=== PATIENT | male | born 1975 | race Caucasian/White ===

== ENCOUNTER 2021-01-19 09:59 | Outpatient (REF) | payer BC, SELFPAY ==
[2021-01-19 10:48] LABS: MANUAL DIFF FLAG NO
[2021-01-19 10:54] LABS: Basophils Percent Auto 0.7 % (0-2); Eosinophils Absolute Auto 0.1 X10*3/uL (0.0-0.4); Eosinophils Percent Auto 2.2 % (0-4); Hematocrit 44.4 % (42-52); Hemoglobin 14.4 g/dl (14.0-18.0); Imm Gran Abs Auto 0.01 X10*3/uL (0.00-0.03); Imm Gran Pct Auto 0.2 % (0.0-0.4); Lymphocytes Absolute Auto 2.1 X10*3/uL (1.2-4.9); Lymphocytes Percent Auto 35.5 % (20-40); Mean Corpuscular HGB Conc 32.4 g/dl (31.0-36.0); Mean Corpuscular Hemoglobin 28.7 pg (27.0-33.0); Mean Corpuscular Volume 88.6 fL (80-98); Mean Platelet Volume 9.3 fL (9.4-12.4); Monocytes Absolute Auto 0.6 X10*3/uL (0.1-1.2); Monocytes Percent Auto 9.9 % (2-11); Neutrophils Absolute Auto 3.1 X10*3/uL (2.0-8.3); Neutrophils Percent Auto 51.5 % (45-73); Platelet Count 273 X10*3/uL (160-400); Red Blood Count 5.01 X10*6/uL (4.60-5.80); Red Cell Distribution Width 12.2 % (11.0-16.0)
[2021-01-19 11:21] LABS: Alanine Aminotransferase 27 U/L (0-40); Albumin Level 4.6 g/dL (3.5-5.0); Alkaline Phosphatase 59 U/L (39-117); Anion Gap 14 (12-20); Aspartate Amino Transferase 19 U/L (5-37); Bilirubin Total 0.8 mg/dL (0.0-1.0); Blood Urea Nitrogen 16 mg/dL (9-16); Calcium 9.6 mg/dL (8.4-10.2); Carbon Dioxide 26 mmol/L (22-29); Chloride 105 mmol/L (96-108); Cholesterol 187 mg/dL; Estimated Glomerular Filt Rate > 60; Glucose Random 91 mg/dL (60-115); HDL Cholesterol 61 mg/dL; LDL Cholesterol Calculated 111 mg/dl; Potassium 4.7 mmol/L (3.3-5.1); Sodium 140 mmol/L (135-145); Total Protein 7.4 g/dL (6.5-8.0); Triglycerides 75 mg/dL
[2021-01-19 11:44] LABS: Thyroid Stimulating Hormone 1.34 uIU/mL (0.32-4.0)
== END 2021-01-19 10:00 | disposition home or self-care (01) ==
LOC: HO.LAB 09:59
PROVIDERS: PCP Physician Assistant; Visit Provider Physician Assistant
DX: E78.5 Hyperlipidemia, unspecified (principal); I10 Essential (primary) hypertension
CPT/HCPCS: 36415; 80053; 80061; 84443; 85025

== ENCOUNTER → 2021-06-01 15:51 | Outpatient (BNVA) | payer BC, SELFPAY | PROVIDERS: PCP Physician Assistant; Referring Provider Physician Assistant; Visit Provider Surgery ==

== ENCOUNTER 2021-07-11 08:54 | Day surgery (SDC) | payer BC, SELFPAY ==
[2021-07-11] VITALS (7 sets, daily range): BP systolic 114–133; BP diastolic 52–66; PULSE 75–89; RESP 14–18; TEMP 36.2–36.6; O2SAT 96–99; BMI 29.2
[2021-07-11] MEDS: Lactated Ringers 1,000 ML 80 ML IVCONT (09:30)
--- NOTE | 2021-07-11 09:54 | HO.ANESPROP2 ---
HPI - Anesthesia Eval Consult details Narrative: 45 M for ummblical hernia repair PMFSH Active Problems Active Problems: All Active Problems (Updated 06/01/21 @ 16:33 by Steve Valencia MD) CHRISTIE (generalized anxiety disorder) (Acute) HLD (hyperlipidemia) (Acute) Annual physical exam (Acute) Urinary frequency (Acute) Umbilical hernia (Acute) HTN (hypertension) (Acute) Past Medical History Medical History (Updated 06/01/21 @ 16:33 by Steve Valencia MD) HTN (hypertension) Functional capacity: independent ambulation Family History Family History Father Prostate cancer Mother Skin cancer Sister Breast cancer Other Mental problem Family history of problems with anesthesia: No Surgical History Surgical History (Updated 07/11/21 @ 09:14 by Mariann Guo RN) [place] teeth extracted History of Problems with Anesthesia: No Social History Social History Housing: House Alcohol intake: current Alcohol intake frequency: a few times a month Patient Tobacco Use Status: Never used Tobacco e-Cigarette/Vaping Use: Never Used Second Hand Smoke Exposure: Yes Use of substances other than those prescribed or required for medical reasons: No Have you been hit, kicked, punched, or otherwise hurt by someone within the past year? 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 [employer] Allergies Allergy/AdvReac Type Severity Reaction Status Date / Time No Known Allergies Allergy Verified 06/01/21 16:08 Active Medications: Current Medications Fentanyl (Fentanyl Citrate/Pf 100 Mcg/2 Ml Vial) 25 mcg IVPUSH Q5M PRN; Protocol PRN Reason: Pain, Moderate (Pain Scale 4-6 Promethazine HCl 12.5 mg/ (Sodium Chloride) 50.5 mls @ 202 mls/hr IV ONCE PRN PRN Reason: Nausea and Vomiting Oxycodone HCl (Oxycodone Hcl Immed Release 5 Mg Tablet) 5 mg PO ONCE PRN PRN Reason: Pain, Severe (Pain Scale 7-10) Home Medications Medication Instructions Recorded Confirmed Last Taken Type clonazepam 0.5 mg tablet 0.5 mg PO DAILY 12/30/20 11/18/21 Unknown History duloxetine 20 mg capsule,delayed 20 mg PO DAILY 01/23/21 06/01/21 Unknown History release aripiprazole 2 mg tablet 2 mg PO DAILY 06/01/21 06/01/21 07/11/21 History propranolol 10 mg tablet 10 mg PO BID 06/01/21 06/01/21 Unknown History sertraline 100 mg tablet 100 mg PO DAILY 06/01/21 06/01/21 07/11/21 History Exam Exam Date and Time: July 11, 2021 0954 Height,Weight and Vital Signs: Height 5 ft 11 in Weight 95.254 kg Last Vital Signs Temp 97.8 F 07/11/21 09:07 Pulse 75 07/11/21 09:07 Resp 18 07/11/21 09:07 BP 121/66 07/11/21 09:07 Pulse Ox 98 07/11/21 09:07 Airway Mallampati Class: II TM Dist: >3cm Neck ROM: Full Loose/Missing/Broken Teeth: Yes (Chipped teeth ) Heart: rrr Lungs: bl breath sounds Assessment and Plan Assessment Anesthesia Assessment: Anesthesia Plan Discussed Final Anesthetic Review Family History of Problems with Anesthesia: No History of Problems with Anesthesia: No NPO: Yes ASA Class: II Final Preanesthetic Review: Cyn Risks/Benef Reviewed Patient Risk: Intermediate Procedure Risk: Intermediate Anesthetic Plan Anesthetic Plan: GA Disposition: Standard PACU
--- NOTE | 2021-07-11 10:08 | P.HPSUR_ITS ---
Pre-Procedural Eval Section A Date of Service: 07/11/21 Section B Chief Complaint: Umbilical Hernia Details of Present Illness: he has a reducible mass on the umbilicus Relevant Family History (Specify if Yes): No Relevant Social History: None Present Medications: see Short Stay Collaborative assessment Medical History: Significant History ( anxiety disorder, hyperlipidemia, hy pertension) Allergies: Allergies Allergy/AdvReac Type Severity Reaction Status Date / Time No Known Allergies Allergy Verified 06/01/21 16:08 Review of Systems Sugical H&P ROS: Negative: Constitution, Cardiovascular, Respiratory, Neurological, Psychiatric, Hem-Onc, Allergic/Immunologic, Gastrointestinal, Genitourinary, Musculoskeletal, Integumentary, Endocrine and Eyes/Ears/Nose/Throat Exam Surgical H&P Exam: Normal: HEENT, Normal: Heart, Normal: Lungs, Normal: Extremities, Normal: Skin and Normal: Neurological and Significant Findings: Abdomen ( umbilical hernia, about 2.5 cm fascial defect) Plan Diagnosis/Plan: Unchanged I have reviewed the history and physical and performed a pertinent physical examination on my patient. No changes have occurred unless specified.
--- NOTE | 2021-07-11 11:05 | W.PM.OPN ---
Operative Note Operative Note Date of Service: 07/11/21 Narrative: Preop diagnosis: Umbilical hernia Postop diagnosis: Umbilical hernia Procedure: Repair of umbilical hernia with Ventralex mesh Surgeon: Steve Valencia MD assistant professor of marine biology: ASHLEY Oh The patient is a 45-year-old male with a reducible umbilical mass consistent with umbilical hernia. In view of symptoms he wanted to proceed with repair. He understood the technique of repair with mesh. He was aware of the risks, benefits, and alternatives He was brought to the operating room and placed supine on the table under general anesthesia via laryngeal mask airway. The abdomen was prepped and draped in the usual sterile fashion. A surgical time-out was done. The patient received cefazolin 2 g IV preoperatively . I infiltrated the planned line of incision with lidocaine 1%. I then made a transverse linear incision on the supra umbilical margin using a blade 15 and this was carried down through the full-thickness of the skin and subcutaneous fat. I was able to visualize a fat containing hernia. I then sharply dissected the umbilicus off of The hernia contents using Metzenbaum scissors and electrocautery. Continue to dissect around the hernia contents all the way to the fascial layer. I defined the fascial layer with dissection and divided all adhesions freeing the hernia to the fascia. I was able to therefore reduce the hernia completely through this defect. The hernia contents consisted only of fat. The fascial defect was measured to be about 1 cm in size although there was a lot of fat that was herniated. I visualized and waited for the underside of the fascial defect to make sure that we had good margins for placement of the mesh. I chose a small-sized Ventralex mesh and positioned this flat under the fascial defect. I secured the Prolene straps of the mesh to the fascial edge on both sides using Prolene 2 sutures. I then trimmed Prolene straps on the fascial level. I closed the fascia with a [id number] Maxon 1 stitch. I applied a Dexon 3-0 stitch to tack the umbilicus to the fascia to re-create the dimple. The subcutaneous layer was reapposed with Dexon 3-0 interrupted sutures. Skin closure was achieved with Dexon 4-0 subcuticular running stitch. The incision was infiltrated with Marcaine 0.5 % for postop analgesia. Steri-Strips and dressings were applied. Procedure was then completed The patient tolerated the procedure well. There were no complications noted. Initial and final counts of sponges and instruments were correct. Estimated blood loss was about less than 5 cc. The patient was extubated without difficulty and transferred to the recovery room with stable vital signs.
--- NOTE | 2021-07-11 11:11 | P.BOP_ITS ---
Brief Operative Note Date of Service: 07/11/21 Pre-op diagnosis: Umbilical hernia Post-op diagnosis: same Procedure: repair of umbilical hernia with mesh Surgeon: Steve Valencia MD Anesthesia: GLMA Was an Knitting Machine Mechanic used for this Procedure?: Yes Knitting Machine Mechanic: Marielle Oh Estimated blood loss (mL): 5 Pathology: none sent Condition: stable Disposition: PACU
[2021-07-11] MEDS: oxyCODONE HCl Immed Release 5 MG TABLET PO (12:00)
== END 2021-07-11 12:41 | disposition home or self-care (01) ==
PROVIDERS: PCP Physician Assistant; Visit Provider Surgery
PROC: (CPT 49585; principal; 2021-07-11 10:40)
DX: K42.9 Umbilical hernia without obstruction or gangrene (principal); I10 Essential (primary) hypertension; Z79.899 Other long term (current) drug therapy
CPT/HCPCS: 49585; C1781; J0690; J1100; J2250; J2405; J3010

== ENCOUNTER 2021-07-24 08:58 | Outpatient (REF) | payer BC, SELFPAY ==
[2021-07-24 09:44] LABS: Hematocrit 43.2 % (42.0-52.0); Mean Corpuscular HGB Conc 32.4 g/dl (31.0-36.0); Mean Corpuscular Volume 89.4 fL (80.0-98.0); Mean Platelet Volume 9.3 fL (9.4-12.4); Platelet Count 260 X10*3/uL (160-400); Red Blood Count 4.83 X10*6/uL (4.60-5.80); Red Cell Distribution Width 12.4 % (11.0-16.0); White Blood Count 7.5 X10*3/uL (4.8-10.8)
[2021-07-24 10:26] LABS: Alanine Aminotransferase 32 U/L (0-40); Albumin Level 4.3 g/dL (3.5-5.0); Alkaline Phosphatase 66 U/L (39-117); Anion Gap 11 (12-20); Aspartate Amino Transferase 16 U/L (5-37); Bilirubin Total 0.5 mg/dL (0.0-1.0); Blood Urea Nitrogen 15 mg/dL (9-16); Calcium 9.7 mg/dL (8.4-10.2); Carbon Dioxide 31 mmol/L (22-29); Chloride 105 mmol/L (96-108); Cholesterol 146 mg/dL; Estimated Glomerular Filt Rate > 60; Glucose Fasting 100 mg/dL (60-99); HDL Cholesterol 52 mg/dL; LDL Cholesterol Calculated 76 mg/dl; Potassium 4.8 mmol/L (3.3-5.1); Sodium 142 mmol/L (135-145); Total Protein 7.2 g/dL (6.5-8.0); Triglycerides 90 mg/dL
[2021-07-24 10:47] LABS: TSH reflex Free T4 1.56 uIU/mL (0.32-4.0)
== END 2021-07-24 08:59 | disposition home or self-care (01) ==
LOC: HO.LAB 08:58
PROVIDERS: PCP Physician Assistant; Visit Provider Physician Assistant
DX: I10 Essential (primary) hypertension (principal)
CPT/HCPCS: 36415; 80053; 80061; 84443; 85027

== ENCOUNTER → 2021-07-25 09:43 | Outpatient (BNVA) | payer BC, SELFPAY | PROVIDERS: PCP Physician Assistant; Referring Provider Physician Assistant; Visit Provider Surgery ==

== ENCOUNTER 2022-06-06 08:42 | Outpatient (REF) | payer BC, SELFPAY ==
[2022-06-06 09:39] LABS: Hematocrit 42.1 % (42.0-52.0); Hemoglobin 13.9 g/dl (14.0-18.0); Mean Corpuscular Hemoglobin 28.9 pg (27.0-33.0); Mean Corpuscular Volume 87.5 fL (80.0-98.0); Mean Platelet Volume 9.6 fL (9.4-12.4); Platelet Count 288 X10*3/uL (160-400); Red Blood Count 4.81 X10*6/uL (4.60-5.80); Red Cell Distribution Width 12.2 % (11.0-16.0); White Blood Count 6.2 X10*3/uL (4.8-10.8)
[2022-06-06 10:42] LABS: Alanine Aminotransferase 14 U/L (0-40); Albumin Level 4.4 g/dL (3.5-5.0); Alkaline Phosphatase 61 U/L (39-117); Anion Gap 12 (12-20); Aspartate Amino Transferase 11 U/L (5-37); Bilirubin Total 0.5 mg/dL (0.0-1.0); Blood Urea Nitrogen 15 mg/dL (9-16); Calcium 9.4 mg/dL (8.4-10.2); Carbon Dioxide 29 mmol/L (22-29); Chloride 104 mmol/L (96-108); Cholesterol 134 mg/dL; Estimated Glomerular Filt Rate > 60; Glucose Fasting 93 mg/dL (60-99); HDL Cholesterol 49 mg/dL; LDL Cholesterol Calculated 70 mg/dl; Potassium 4.4 mmol/L (3.3-5.1); Sodium 141 mmol/L (135-145); TSH reflex Free T4 1.58 uIU/mL (0.32-4.0); Total Protein 6.8 g/dL (6.5-8.0); Triglycerides 76 mg/dL
[2022-06-06 11:21] LABS: Creatinine Urine 212.97 mg/dL; Microalbum/Creatinine Ratio Ur 4.6 ug/mg cr
== END 2022-06-06 08:43 | disposition home or self-care (01) ==
LOC: HO.LAB 08:42
PROVIDERS: PCP Physician Assistant; Visit Provider Physician Assistant
DX: E78.2 Mixed hyperlipidemia (principal); I10 Essential (primary) hypertension
CPT/HCPCS: 36415; 80053; 80061; 82043; 84443; 85027

== ENCOUNTER 2022-06-26 14:17 | Outpatient (REF) | payer BC, SELFPAY ==
--- NOTE | ~2022-06-26 | XR_ITS ---
EXAMINATION: XR SHOULDER, LEFT CLINICAL INFORMATION: Pain of left shoulder COMPARISON: None TECHNIQUE: AP external rotation, Grashey, scapular Y, and axillary views of the left shoulder. FINDINGS: The humeral head is well positioned over the intact glenoid. Glenohumeral joint space is normal. No arthritic deformity, fracture or subluxation. Acromioclavicular joint is normal. The subacromial space is normal. Scapula is unremarkable. No calcium deposition within rotator cuff tendons. The visualized portion of the left lung is normal. XR/XR shoulder LT min 2V IMPRESSION: Normal left shoulder.
== END 2022-06-26 14:18 | disposition home or self-care (01) ==
LOC: HO.XRAY 14:17
PROVIDERS: PCP Physician Assistant; Visit Provider Physician Assistant
DX: M25.812 Other specified joint disorders, left shoulder (principal)
CPT/HCPCS: 73030

== ENCOUNTER 2023-10-03 09:38 | Outpatient (REF) | payer BC, SELFPAY ==
[2023-10-03 10:49] LABS: Hematocrit 42.6 % (42.0-52.0); Hemoglobin 14.5 g/dl (14.0-18.0); Mean Corpuscular Hemoglobin 30.2 pg (27.0-33.0); Mean Corpuscular Volume 88.8 fL (80.0-98.0); Mean Platelet Volume 9.6 fL (9.4-12.4); Platelet Count 268 X10*3/uL (160-400); Red Cell Distribution Width 12.2 % (11.0-16.0); White Blood Count 6.1 X10*3/uL (4.8-10.8)
[2023-10-03 11:17] LABS: Alanine Aminotransferase 24 U/L (0-40); Albumin Level 4.5 g/dL (3.5-5.0); Alkaline Phosphatase 63 U/L (39-117); Anion Gap 12 (12-20); Aspartate Amino Transferase 15 U/L (5-37); Bilirubin Total 0.9 mg/dL (0.0-1.0); Blood Urea Nitrogen 14 mg/dL (9-16); Calcium 9.5 mg/dL (8.4-10.2); Carbon Dioxide 30 mmol/L (22-29); Chloride 103 mmol/L (96-108); Cholesterol 162 mg/dL (<200); Estimated Glomerular Filt Rate > 60; Glucose Fasting 92 mg/dL (60-99); HDL Cholesterol 57 mg/dL (>40); LDL Cholesterol Calculated 84 mg/dL (<100); Potassium 4.4 mmol/L (3.3-5.1); Sodium 141 mmol/L (135-145); Total Protein 7.3 g/dL (6.5-8.0); Triglycerides 109 mg/dL (<150)
[2023-10-03 11:32] LABS: TSH reflex Free T4 1.38 uIU/mL (0.32-4.0)
== END 2023-10-03 09:39 | disposition home or self-care (01) ==
LOC: HO.LAB 09:38
PROVIDERS: PCP Physician Assistant; Visit Provider Physician Assistant
DX: E78.2 Mixed hyperlipidemia (principal); I10 Essential (primary) hypertension
CPT/HCPCS: 36415; 80053; 80061; 84443; 85027

== ENCOUNTER 2023-10-14 15:37 | Outpatient (AMB) | payer BC, SELFPAY ==
--- NOTE | 2023-10-14 15:47 | A.OFFPC_ITS ---
Vital Signs 10/14/23 15:47 10/14/23 15:57 Height 5 ft 11 in 5 ft 11 in Weight 200 lb 6 oz BMI 27.9 BP 124/82 Blood Pressure Location Lt brachial Lt brachial Position Sitting Sitting Pulse 67 Pulse Source Pulse Oximeter Pulse Oximeter Pulse Oximetry (%) 98 Oxygen Delivery Method Room Air Room Air Intake Visit Reasons: Physical Exam Intake Note: Patient is here today for a physical. Treatment Coordinator Required: No Accompanied by: Self / Same As Patient Allergies No Known Allergies Allergy (Verified 10/14/23 16:12) Medication List - Last Reconciled 10/14/23 by Joaquin Douglas PA-C atorvastatin 10 mg PO DAILY 90 days clonazepam 0.5 mg PO DAILY fluoxetine 10 mg PO DAILY hydrochlorothiazide 25 mg PO DAILY 90 days lamotrigine 200 mg PO DAILY lisinopril 5 mg PO DAILY 90 days propranolol 10 mg PO BID quetiapine (Seroquel) 200 mg PO BEDTIME tamsulosin 0.4 mg PO DAILY Tobacco use date assessed: 10/14/23 Dental Screening Dental Screen Date: 10/14/23 Did you have a dental visit in the last 12 months?: Yes Did you have a dental problem in the last 6 months where you did not have access to dental care?: No Was dental information given to patient?: Patient has dentist HPI Physical Exam 2 HPI Details Patient is a 47-year-old male here today for annual physical. Patient's past medical history significant for generalized anxiety disorder, hypertension, hyperlipidemia. Concerns--> continues with moderate to severe anxiety. Also reports his left shoulder has been in some pain and decreased range of motion over the last 6-8 months. He reports it has gradually been resolving though still has some mild pain on the posterior aspect of his left shoulder. He denies any overt injury to his left shoulder. ? . ? Generalized anxiety disorder:? He reports he is now speaking to a mental health therapist and a psychiatrist who manages his mental health medications. Has been started on Seroquel at night which has been helpful for sleep. ? Patient reports his generalized anxiety disorder has not been well controlled lately. He continues on lamotrigine and escitalopram as maintenance for his a nxiety. Does use clonazepam on a limited p.r.n. basis for panic attack. ? .. ? HTN: Todays BP acceptable in office. Patient denies any chest pain, shortness of breath, lower extremity edema. .. Hyperlipidemia: Patient continues on statin therapy with good effect. Most recent lipid panel acceptable. Vaccine: UTD with Tdap , UTD with COVID Vac. declines flu vaccine Colorectal cancer screening: Patient declining colonoscopy, he is considering Cologuard Laboratory Tests 06/06/22 06/06/22 08:53 08:53 RBC 4.81 Creatinine 0.85 Fasting Glucose 93 Cholesterol 134 LDL Cholesterol, C alc 70 TSH 1.58 PFSH Medical History (Updated 10/15/23 @ 07:36 by Joaquin Douglas PA-C) Umbilical hernia HTN (hypertension) Surgical History H/O umbilical hernia repair [place] teeth extracted Family History Father Prostate cancer Valvular heart disease Heart disease Mother Skin cancer Sister Breast cancer Other Mental problem Social History (Updated 10/14/23 @ 16:24 by Joaquin Douglas PA-C) Housing: House Alcohol intake: current Alcohol intake frequency: a few times a month Alcohol type: beer Patient Tobacco Use Status: Never used Tobacco e-Cigarette/Vaping Use: Never Used Second Hand Smoke Exposure: Yes service: No Current occupational status: employed 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 61262 - PHQ-9 Billing: Patient declined-do not bill Source: Developed by Drs. Zaheer Whelan, Annie Christine, Efrem Riojas and colleagues, with an educational mayra from [employer]. Thrive Questionnaire Date Thrive assessed: 10/14/23 I am a: Patient What is your living situation today?: I have a steady place to live Within the past 12 months, did the food you bought not last and you didn't have the money to get more?: Never true Within the past 12 months, did you worry whether your food would run out before you got money to buy more?: Never true Do you have trouble paying for medicines?: No Do you have trouble getting transportation to medical appointments?: No Do you have trouble paying your heating and electricity bill?: No Do you have trouble taking care of your child, family member or friend?: No Do you have trouble with day-to-day activities such as bathing, preparing meals, shopping, managing finances, etc.?: No Are you currently unemployed and looking for a job?: No Are you interested in more education?: No Please select the resources that you would like help with: None Currently or been in a relationship where the following occur: no concerns reported THRIVE Score: 0 AUDIT C Alcohol Use Questionnaire (AUDIT-C) 1. How often do you have a drink containing alcohol?: Monthly or less 2. How many drinks containing alcohol do you have on a typical day when you are drinking?: 1 or 2 3. How often do you have six or more drinks on one occasion?: Never Total Score: 1 CHRISTIE-7 AMB Questionnaire CHRISTIE-7 Date CHRISTIE - 7 assessed: 10/14/23 Source: Developed by Drs. Zaheer Whelan, Annie Christine, Efrem Riojas and colleagues, with an educational mayra from [employer]. CHRISTIE-7 Assessment Billing CHRISTIE-7 Assessment Tool: pt declined-do not bill Review of Systems Const Denies body aches, Denies chills, Denies excessive sweating, Denies fatigue, Denies fever(s) and Denies headache(s) Eyes Denies blurry vision ENT Denies dysphagia, Denies vertigo, Denies dizziness, Denies headache(s), Denies hearing loss and Denies tinnitus Card Denies chest pain, Denies chest pain with activity, Denies syncope, Denies irregular heart rhythm and Denies dyspnea Resp Denies chest congestion, Denies cough, Denies hemoptysis, Denies dyspnea and Denies wheezing GI Denies abdominal pain, Denies melena, Denies hematochezia, Denies coffee ground emesis, Denies dysphagia, Denies diarrhea, Denies nausea and Denies vomiting Denies difficulty urinating, Denies dysuria, Denies urinary frequency, Denies urinary hesitancy and Denies urinary urgency Musc Denies arthralgias, Denies limited range of motion, Denies muscle cramps and Denies muscle weakness Skin/Breast Denies rash and Denies skin ulcer Neuro Denies Abnormal speech present, Denies confusion, Denies vertigo, Denies dizziness, Denies syncope, Denies headache(s), Denies memory loss and Denies seizure-like activity Psych Denies anxiety, Denies confusion, Denies depression, Denies memory loss, Denies panic attacks and Denies paranoia Endo Denies excessive sweating, Denies fatigue, Denies flushing, Denies polydipsia and Denies polyuria Aller/Immun Denies wheezing Physical exam (Primary Care) Vital Signs: Last Vital Signs Pulse 67 10/14/23 15:57 BP 124/82 10/14/23 15:57 Pulse Ox 98 10/14/23 15:57 Oxygen Delivery Method Room Air 10/14/23 15:57 BMI result Body Mass Index 27.9 Tobacco/Smoking Status: Tobacco use Status Tobacco use date assessed 10/14/23 10/14/23 16:05 Patient Tobacco Use Status Never used Tobacco 10/14/23 16:24 e-Cigarette/Vaping Use Never Used 10/14/23 16:24 Thrive Assessment: Date of Thrive Assessment Date Thrive assessed 10/14/23 10/14/23 16:05 Currently or been in a relationship where the following occur: no concerns reported Const General: cooperative, comfortable, no acute distress, alert and awake; No confusion Orientation/consciousness: oriented to person, oriented to place, patient oriented x3 and No confusion HENMT Head: Yes normocephalic Ears: external ears normal and TM's normal bilaterally Face and sinus: No sinus tenderness Mouth: Normal oral and palatal mucosa present and tongue normal Teeth and gingiva: dentition normal and gingiva normal Throat: Yes posterior oropharynx normal, Yes tonsils normal and Yes uvula midline Eyes Conjunctivae: conjunctivae normal Sclerae: sclerae normal Pupils: Equal, round and reactive pupils present EOM: EOMs intact bilaterally Direct Ophthalmoscopy: No no photophobia Neck Neck: Yes no lymphadenopathy, No tender and Yes no JVD Thyroid: Thyroid normal Carotids: no bruits Chest Chest palpation & inspection: no tenderness Resp Effort & Inspection: normal respiratory effort, no audible wheezes, not labored and no stridor Auscultation: no crackles, no rales, no rhonchi and no wheezes Cardio Jugular venous distension: no JVD Rate: regular rate, not bradycardic and not tachycardic Rhythm: regular rhythm Bruits: no carotid bruits Peripheral pulses: Peripheral pulses 2+ throughout GI Inspection: Yes normal to inspection, No abdominal wall ecchymosis and No vi sible herniation Palpation (GI): Soft to palpation, nontender, no guarding, not rigid and No hepatosplenomegaly present Auscultation: normoactive bowel sounds General: Yes no CVA tenderness Back/Spine/Pelvis Back: no CVA tenderness and No back tenderness Cervical Spine: cervical ROM normal Thoracic/Lumbar Spine: thoracic and lumbar spine normal to inspection, straight leg raise negative bilaterally, No thoraco-lumbar ROM limited and No lumbar spinal tenderness Skin Lesions: no lesions Rashes: no rashes Wounds: no wounds Neuro General: oriented to person, oriented to place, patient oriented x3, CN's II-XI intact bilaterally and No confusion Cranial nerves: Yes Equal, round and reactive pupils present and Yes Normal accommodation reflex present Cognition (Neuro): normal cognition Speech: No Abnormal speech present Gait exam (Neuro): Normal gait present Motor exam (neuro): 5/5 motor strength present throughout Extrem Right upper extremity: full ROM; no cyanosis Left upper extremity: full ROM; no cyanosis Right lower extremity: no edema Left lower extremity: no edema Psych Appearance: grossly normal Mental Status: mental status grossly normal Affect: normal affect Attitude: cooperative Thought process: Normal thought process present Assessment and Plan Assessment & Plan (1) Annual physical exam: Code(s): Z00.00 - Encounter for general adult medical examination without abnormal findings (2) Colon cancer screening: Code(s): Z12.11 - Encounter for screening for malignant neoplasm of colon Plan: Patient willing to do Cologuard. (3) CHRISTIE (generalized anxiety disorder): Code(s): F41.1 - Generalized anxiety disorder Plan: Patient's anxiety has been much better controlled. Now on a new cocktail of mental health medications and speaking to a mental health med provider. (4) HLD (hyperlipidemia): Code(s): E78.5 - Hyperlipidemia, unspecified Qualifiers: Hyperlipidemia type: mixed hyperlipidemia Qualified Code(s): E78.2 - Mixed hyperlipidemia Plan: Patient's most recent lipid panel acceptable. Continues on low-dose statin therapy. Goal LDL to be below 130 (5) HTN (hypertension): Code(s): I10 - Essential (primary) hypertension Qualifiers: Hypertension type: primary hypertension Qualified Code(s): I10 - Essential (primary) hypertension Plan: Patient's blood pressure acceptable today in office. Will continue him on his current dose of lisinopril and hydrochlorothiazide. Goal blood pressure be below 140/90 (6) MDD (major depressive disorder), recurrent episode, moderate: Code(s): F33.1 - Major depressive disorder, recurrent, moderate Plan: Patient's depression has been much better controlled. Continues on SSRI therapy, Seroquel and daily use of clonazepam. Orders: Orders Lipid Panel 10/14/23 E78.2 - Mixed hyperlipidemia Comprehensive [place]. Panel Fast 10/14/23 I10 - Essential (primary) hypertension Complete Blood Count no Diff 10/14/23 I10 - Essential (primary) hypertension Microalbumin, Random (w Creat) 10/14/23 I10 - Essential (primary) hypertension Referrals Cologuard Test Z12.11 - Encounter for screening for malignant neoplasm of colon Coding Level of Care Code Est Pt Prev Care 40-64y(60911) Diagnoses Annual physical exam Z00.00 Colon cancer screening Z12.11 CHRISTIE (generalized anxiety disorder) F41.1 Mixed hyperlipidemia E78.2 Hyperlipidemia type: mixed hyperlipidemia Primary hypertension I10 Hypertension type: primary hypertension MDD (major depressive disorder), recurrent episode, moderate F33.1
[2023-10-14 15:57] VITALS: BP 124/82; PULSE 67; O2SAT 98; BMI 27.9
== END 2023-10-14 16:44 | disposition home or self-care (01) ==
PROVIDERS: PCP Physician Assistant; Visit Provider Physician Assistant
DX: Z00.00 Encounter for general adult medical examination without abnormal findings (principal); F33.1 Major depressive disorder, recurrent, moderate; F41.1 Generalized anxiety disorder; Z12.11 Encounter for screening for malignant neoplasm of colon; E78.2 Mixed hyperlipidemia; I10 Essential (primary) hypertension
CPT/HCPCS: 99396

== ENCOUNTER 2024-10-08 11:46 | Outpatient (REF) | payer BC, SELFPAY ==
[2024-10-08 12:37] LABS: Hematocrit 41.5 % (42.0-52.0); Hemoglobin 14.1 g/dl (14.0-18.0); Mean Corpuscular Hemoglobin 29.6 pg (27.0-33.0); Mean Platelet Volume 9.1 fL (9.4-12.4); Platelet Count 277 X10*3/uL (160-400); Red Blood Count 4.77 X10*6/uL (4.60-5.80); Red Cell Distribution Width 12.2 % (11.0-16.0); White Blood Count 6.7 X10*3/uL (4.8-10.8)
[2024-10-08 13:08] LABS: Alanine Aminotransferase 22 U/L (0-40); Albumin Level 4.3 g/dL (3.5-5.0); Alkaline Phosphatase 56 U/L (39-117); Anion Gap 11 (12-20); Aspartate Amino Transferase 23 U/L (5-37); Bilirubin Total 0.9 mg/dL (0.0-1.0); Blood Urea Nitrogen 14 mg/dL (9-16); Calcium 9.4 mg/dL (8.4-10.2); Carbon Dioxide 28 mmol/L (22-29); Chloride 104 mmol/L (96-108); Cholesterol 171 mg/dL (<200); Estimated Glomerular Filt Rate > 60; Glucose Fasting 92 mg/dL (60-99); HDL Cholesterol 60 mg/dL (>40); LDL Cholesterol Calculated 101 mg/dL (<100); Potassium 4.2 mmol/L (3.3-5.1); Sodium 139 mmol/L (135-145); Total Protein 7.3 g/dL (6.5-8.0); Triglycerides 53 mg/dL (<150)
[2024-10-08 13:43] LABS: Creatinine Urine 81.29 mg/dL; Microalbum/Creatinine Ratio Ur 9.8 ug/mg cr (<30)
== END 2024-10-08 11:47 | disposition home or self-care (01) ==
LOC: HO.LAB 11:46
PROVIDERS: PCP Physician Assistant; Visit Provider Physician Assistant
DX: I10 Essential (primary) hypertension (principal); E78.2 Mixed hyperlipidemia
CPT/HCPCS: 36415; 80053; 80061; 82043; 82570; 85027

== ENCOUNTER 2024-10-15 14:28 | Outpatient (AMB) | payer BC, SELFPAY ==
[2024-10-15 14:31] VITALS: BP 110/70; PULSE 76; O2SAT 96; BMI 29.3
--- NOTE | 2024-10-15 14:31 | A.OFFPC_ITS ---
Vital Signs 10/15/24 14:31 Height 5 ft 11 in Weight 210 lb 2 oz BMI 29.3 BP 110/70 Blood Pressure Location Lt brachial Position Sitting Pulse 76 Pulse Source Pulse Oximeter Pulse Oximetry (%) 96 Oxygen Delivery Method Room Air Intake Visit Reasons: annual exam Criminal Defense Attorney Required: No Accompanied by: Self / Same As Patient Allergies No Known Allergies Allergy (Verified 10/15/24 14:56) Medication List - Last Reconciled 10/15/24 by Joaquin Douglas PA-C atorvastatin 10 mg PO DAILY 90 days clonazepam 0.5 mg PO DAILY fluoxetine 10 mg PO DAILY hydrochlorothiazide 25 mg PO DAILY 90 days lamotrigine 200 mg PO DAILY lisinopril 5 mg PO DAILY 90 days propranolol 10 mg PO BID quetiapine (Seroquel) 200 mg PO BEDTIME tamsulosin 0.4 mg PO DAILY Tobacco use date assessed: 10/15/24 Dental Screening Dental Screen Date: 10/15/24 Did you have a dental visit in the last 12 months?: Yes Did you have a dental problem in the last 6 months where you did not have access to dental care?: No Was dental information given to patient?: Patient has dentist HPI annual exam 2 HPI Details Patient is a 48-year-old male here today for annual physical. Patient's past medical history significant for generalized anxiety disorder, hypertension, hyperlipidemia. Concerns--> reports over last few months noticing some worsening urinary urgency. Has been using tamsulosin and wonders about her higher dose. He does take hydrochlorothiazide which may be causing him some urinary frequency and urgency. Will hold off on hydrochlorothiazide and see if his urinary symptoms improved. Otherwise will consider Urology evaluation and trying oxybutynin for spastic bladder. ? . ? Generalized anxiety disorder:? He reports he is now speaking to a mental health therapist and a psychiatrist who manages his mental health medications. Has been started on Seroquel at night which has been helpful for sleep. ? Patient reports his generalized anxiety disorder has not been well controlled lately. He continues on lamotrigine and escitalopram as maintenance for his anxiety. Does use clonazepam on a limited p.r.n. basis for panic attack. ? .. ? HTN: Todays BP acceptable in office. Continues on multiple antihypertensive medications. Patient denies any chest pain, shortness of breath, lower extremity edema. .. Hyperlipidemia: Patient continues on statin therapy with good effect. Most recent lipid panel acceptable. Vaccine: UTD with Tdap , UTD with COVID Vac. declines flu vaccine Colorectal cancer screening: Patient declining colonoscopy, he is considering Cologuard Laboratory Tests 10/03/23 10/08/24 10/08/24 09:47 12:11 12:12 RBC 4.80 Hgb 14.5 14.1 Hct 41.5 L Creatinine 0.82 0.82 Fasting Glucose 92 Cholesterol 162 171 LDL Cholesterol, C alc 84 101 H TSH 1.38 Urine Microalbumin 8.0 PFSH Medical History Umbilical hernia HTN (hypertension) Surgical History H/O umbilical hernia repair [place] teeth extracted Family History (Updated 10/15/24 @ 15:02 by Joaquin Douglas PA-C) Father Prostate cancer Valvular heart disease Heart disease Mother Skin cancer Alzheimer dementia Sister Breast cancer Other Mental problem Social History (Updated 10/15/24 @ 15:03 by Joaquin Douglas PA-C) Housing: House Alcohol intake: current Alcohol intake frequency: a few times a month Alcohol type: beer Patient Tobacco Use Status: Never used Tobacco e-Cigarette/Vaping Use: Never Used Second Hand Smoke Exposure: Yes service: No Current occupational status: employed 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 1. Little interest or pleasure in doing things: not at all 2. Feeling down, depressed, or hopeless: not at all 3. Trouble falling or staying asleep, or sleeping too much: not at all 4. Feeling tired or having little energy: not at all 5. Poor appetite or overeating: not at all 6. Feeling bad about yourself - or that you are a failure or have let yourself or your family down: not at all 7. Trouble concentrating on things, such as reading the newspaper or watching television: not at all 8. Moving or speaking so slowly that other people could have noticed. Or the opposite - being so fidgety or restless that you have been moving around a lot more than usual: not at all 9. Thoughts that you would be better off or of hurting yourself in some way: not at all Total score: 0 Depression Screening Interpretation: Negative Depression Screening Done: Yes 41708 - PHQ-9 Billing: Yes Source: Developed by Drs. Zaheer Whelan, Annie Christine, Efrem Riojas and colleagues, with an educational mayra from [employer]. Thrive Questionnaire Date Thrive assessed: 10/15/24 I am a: Patient What is your living situation today?: I have a steady place to live Within the past 12 months, did the food you bought not last and you didn't have the money to get more?: Never true Within the past 12 months, did you worry whether your food would run out before you got money to buy more?: Never true Do you have trouble paying for medicines?: No Do you have trouble getting transportation to medical appointments?: No Do you have trouble paying your heating and electricity bill?: No Do you have trouble taking care of your child, family member or friend?: No Do you have trouble with day-to-day activities such as bathing, preparing meals, shopping, managing finances, etc.?: No Are you currently unemployed and looking for a job?: Yes Are you interested in more education?: No Please select the resources that you would like help with: None Currently or been in a relationship where the following occur: No concerns reported THRIVE Score: 0 AUDIT C Alcohol Use Questionnaire (AUDIT-C) 1. How often do you have a drink containing alcohol?: Monthly or less 2. How many drinks containing alcohol do you have on a typical day when you are drinking?: 1 or 2 3. How often do you have six or more drinks on one occasion?: Less than monthly Total Score: 2 CHRISTIE-7 AMB Questionnaire CHRISTIE-7 Date CHRISTIE - 7 assessed: 10/15/24 Feeling nervous, anxious, or on edge: 1 = Several days Not being able to stop or control worryin = Not at all Worrying too much about different things: 1 = Several days Trouble relaxin = Several days Being so restless that it is hard to sit still: 0 = Not at all Becoming easily annoyed or irritable: 0 = Not at all Feeling afraid as if something awful might happen: 0 = Not at all Total CHRISTIE-7 score (0-4 normal; 5-9 mild; 10-14 moderate; 15-21 severe): 3 Source: Developed by Drs. Zaheer Whelan, Annie Christine, Efrem Riojas and colleagues, with an educational mayra from [employer]. CHRISTIE-7 Assessment Billing CHRISTIE-7 Assessment Tool: CHRISTIE-7 Assessment 32490 Review of Systems Const Denies body aches, Denies chills, Denies excessive sweating, Denies fatigue, Denies fever(s) and Denies headache(s) Eyes Denies blurry vision ENT Denies dysphagia, Denies vertigo, Denies dizziness, Denies headache(s), Denies hearing loss and Denies tinnitus Card Denies chest pain, Denies chest pain with activity, Denies syncope, Denies irregular heart rhythm and Denies dyspnea Resp Denies chest congestion, Denies cough, Denies hemoptysis, Denies dyspnea and Denies wheezing GI Denies abdominal pain, Denies melena, Denies hematochezia, Denies coffee ground emesis, Denies dysphagia, Denies diarrhea, Denies nausea and Denies vomiting Denies difficulty urinating, Denies dysuria, Denies urinary frequency, Denies urinary hesitancy and Denies urinary urgency Musc Denies arthralgias, Denies limited range of motion, Denies muscle cramps and Denies muscle weakness Skin/Breast Denies rash and Denies skin ulcer Neuro Denies Abnormal speech present, Denies confusion, Denies vertigo, Denies dizziness, Denies syncope, Denies headache(s), Denies memory loss and Denies seizure-like activity Psych Denies anxiety, Denies confusion, Denies depression, Denies memory loss, Denies panic attacks and Denies paranoia Endo Denies excessive sweating, Denies fatigue, Denies flushing, Denies polydipsia and Denies polyuria Aller/Immun Denies wheezing Physical exam (Primary Care) Vital Signs: Last Vital Signs Pulse 76 10/15/24 14:31 BP 110/70 10/15/24 14:31 Pulse Ox 96 10/15/24 14:31 Oxygen Delivery Method Room Air 10/15/24 14:31 BMI result Body Mass Index 29.3 Tobacco/Smoking Status: Tobacco use Status Tobacco use date assessed 10/15/24 10/15/24 14:51 Patient Tobacco Use Status Never used Tobacco 10/15/24 14:33 e-Cigarette/Vaping Use Never Used 10/15/24 14:33 PHQ-9: PHQ-9 Score PHQ-9: Total score 0 10/15/24 14:50 Depression Screening Interpretation: Negative Thrive Assessment: Date of Thrive Assessment Date Thrive assessed 10/15/24 10/15/24 14:33 Currently or been in a relationship where the following occur: No concerns reported Const General: cooperative, comfortable, no acute distress, alert and awake; No confusion Orientation/consciousness: oriented to person, oriented to place, patient oriented x3 and No confusion HENMT Head: Yes normocephalic Ears: external ears normal and TM's normal bilaterally Face and sinus: No sinus tenderness Mouth: Normal oral and palatal mucosa present and tongue normal Teeth and gingiva: dentition normal and gingiva normal Throat: Yes posterior oropharynx normal, Yes tonsils normal and Yes uvula midline Eyes Conjunctivae: conjunctivae normal Sclerae: sclerae normal Pupils: Equal, round and reactive pupils present EOM: EOMs intact bilaterally Direct Ophthalmoscopy: No no photophobia Neck Neck: Yes no lymphadenopathy, No tender and Yes no JVD Thyroid: Thyroid normal Carotids: no bruits Chest Chest palpation & inspection: no tenderness Resp Effort & Inspection: normal respiratory effort, no audible wheezes, not labored and no stridor Auscultation: no crackles, no rales, no rhonchi and no wheezes Cardio Jugular venous distension: no JVD Rate: regular rate, not bradycardic and not tachycardic Rhythm: regular rhythm Bruits: no carotid bruits Peripheral pulses: Peripheral pulses 2+ throughout GI Inspection: Yes normal to inspection, No abdominal wall ecchymosis and No visible herniation Palpation (GI): Soft to palpation, nontender, no guarding, not rigid and No hepatosplenomegaly present Auscultation: normoactive bowel sounds General: Yes no CVA tenderness Back/Spine/Pelvis Back: no CVA tenderness and No back tenderness Cervical Spine: cervical ROM normal Thoracic/Lumbar Spine: thoracic and lumbar spine normal to inspection, straight leg raise negative bilaterally, No thoraco-lumbar ROM limited and No lumbar spinal tenderness Skin Lesions: no lesions Rashes: no rashes Wounds: no wounds Neuro General: oriented to person, oriented to place, patient oriented x3, CN's II-XI intact bilaterally and No confusion Cranial nerves: Yes Equal, round and reactive pupils present and Yes Normal accommodation reflex present Cognition (Neuro): normal cognition Speech: No Abnormal speech present Gait exam (Neuro): Normal gait present Motor exam (neuro): 5/5 motor strength present throughout Extrem Right upper extremity: full ROM; no cyanosis Left upper extremity: full ROM; no cyanosis Right lower extremity: no edema Left lower extremity: no edema Psych Appearance: grossly normal Mental Status: mental status grossly normal Affect: normal affect Attitude: cooperative Thought process: Normal thought process present Coding Level of Care Code Est Pt Prev Care 40-64y(36622) Diagnoses Annual physical exam Z00.00 Colon cancer screening Z12.11 MDD (major depressive disorder), recurrent episode, moderate F33.1 Mixed hyperlipidemia E78.2 Hyperlipidemia type: mixed hyperlipidemia Primary hypertension I10 Hypertension type: primary hypertension CHRISTIE (generalized anxiety disorder) F41.1 Urinary urgency R39.15 Additional Codes CHRISTIE-7 Assessment Billing - CHRISTIE-7 Assessment Tool: CHRISTIE-7 Assessment 60816 ([id number]) PHQ-9 - 14340 - PHQ-9 Billing: Yes ([id number]) Assessment & Plan Assessment & Plan (1) Annual physical exam: Code(s): Z00.00 - Encounter for general adult medical examination without abnormal findings Category: Medical Plan: As per [facility] (2) Colon cancer screening: Code(s): Z12.11 - Encounter for screening for malignant neoplasm of colon Category: Medical Plan: Patient has yet to get Cologuard done, he is willing to get reordered a Cologuard and promises to do at this time. (3) MDD (major depressive disorder), recurrent episode, moderate: Code(s): F33.1 - Major depressive disorder, recurrent, moderate Category: Medical Plan: Patient's PHQ-9 score 0, does suffer with depression and anxiety. He continues to speak with a psychiatrist who manages his mental health medications. (4) HLD (hyperlipidemia): Code(s): E78.5 - Hyperlipidemia, unspecified Category: Medical Qualifiers: Hyperlipidemia type: mixed hyperlipidemia Qualified Code(s): E78.2 - Mixed hyperlipidemia Plan: Patient's most recent fasting lipid panel showing excellent control of his total cholesterol and LDL. He will continue his current dose of atorvastatin 10 mg. Goal LDL is to remain below 130 (5) HTN (hypertension): Code(s): I10 - Essential (primary) hypertension Category: Medical Qualifiers: Hypertension type: primary hypertension Qualified Code(s): I10 - [place] tial (primary) hypertension Plan: Patient's blood pressure acceptable today in office. Due to patient's urinary urgency will hold off on hydrochlorothiazide and continue monitoring blood pressure. Goal blood pressures to be below 140/90 (6) CHRISTIE (generalized anxiety disorder): Code(s): F41.1 - Generalized anxiety disorder Category: Medical Plan: Patient's anxiety still evident though has been much better controlled with medication. Continues to follow a psychiatrist who manages his mental health medications. (7) Urinary urgency: Code(s): R39.15 - Urgency of urination Category: Medical Plan: As above Orders: Orders Complete Blood Count no Diff Today E78.2 - Mixed hyperlipidemia Prostate Specific Antigen Scr Today R39.15 - Urgency of urination, Z12.5 - Encounter for screening for malignant neoplasm of prostate Comprehensive [place]. Panel Fast Today I10 - Essential (primary) hypertension Lipid Panel Today E78.2 - Mixed hyperlipidemia Referrals Cologuard Test Z12.11 - Encounter for screening for malignant neoplasm of colon Medications: On Hold hydrochlorothiazide Hold Comment: Doctor's Order 25 mg PO DAILY 90 days 90 tabs 2RF I10 - Essential (primary) hypertension Patient Instructions: Goal: Blood pressure to remain below 140/90 Barrier: Adherence to physical activity and healthy eating habits
== END 2024-10-15 15:49 | disposition home or self-care (01) ==
LOC: HO.HMCH 14:29
PROVIDERS: PCP Physician Assistant; Visit Provider Physician Assistant
DX: Z00.00 Encounter for general adult medical examination without abnormal findings (principal); Z12.11 Encounter for screening for malignant neoplasm of colon; F33.1 Major depressive disorder, recurrent, moderate; E78.2 Mixed hyperlipidemia; I10 Essential (primary) hypertension; F41.1 Generalized anxiety disorder; R39.15 Urgency of urination

== ENCOUNTER → 2024-10-15 14:28 | Outpatient (BNVA) | payer BC, SELFPAY | PROVIDERS: PCP Physician Assistant; Visit Provider Physician Assistant | DX: Z00.00 Encounter for general adult medical examination without abnormal findings (principal); F33.1 Major depressive disorder, recurrent, moderate; E78.2 Mixed hyperlipidemia; I10 Essential (primary) hypertension; F41.1 Generalized anxiety disorder; R39.15 Urgency of urination; Z79.899 Other long term (current) drug therapy | CPT/HCPCS: 96127 ==